=== PATIENT | male | born 1980 | race Caucasian/White ===

== ENCOUNTER 2017-04-12 07:44 | Day surgery (SDC) | payer OTHER ==
[2017-04-09 14:31] VITALS: BMI 31.6
[2017-04-12] MEDS ORDERED: MIDAZOLAM HCL 2 MG/2 ML SINGLE DOSE VIAL ONE (08:49)
[2017-04-12] MEDS ORDERED: ROPIVACAINE HCL 0.5% 30ML VIAL ONE (08:49)
[2017-04-12] MEDS ORDERED: DEXAMETHASONE SOD PHOSPHATE/PF 10 MG/ML SDV ONE (08:49)
[2017-04-12] MEDS ORDERED: VANCOMYCIN 1,000 MG VIAL (RESTRICTED TO ID ONLY) ONE (09:07)
[2017-04-12] MEDS ORDERED: PROPOFOL 20 ML ONE (09:10)
[2017-04-12] MEDS ORDERED: LIDOCAINE HCL 2% 100 MG/5 ML DISP.SYRIN ONE (09:10)
[2017-04-12] MEDS ORDERED: ceFAZolin SODIUM 1 GM VIAL ONE (09:50)
[2017-04-12] MEDS ORDERED: DEXAMETHASONE SOD PHOSPHATE 4 MG/1 ML VIAL ONE (09:52)
[2017-04-12] MEDS ORDERED: ONDANSETRON 4 MG/2 ML VIAL ONE ×2 (09:52→11:25)
--- NOTE | 2017-04-12 11:01 | DS ---
Physical Examination Vital Signs: Vital Signs Temperature 97.7 F 04/12/17 08:03 Pulse Rate 56 L 04/12/17 08:03 Respiratory Rate 16 04/12/17 08:03 Blood Pressure 105/64 04/12/17 08:03 O2 Sat by Pulse Oximetry (%) 96 04/12/17 08:13 Discharge Summary Reason For Visit: ACL MEDIAL/LATERAL TEARS RIGHT KNEE Condition: Good - Instructions Diet, Activity, Other Instructions: Post Operative Instructions: ACL Reconstruction Dr. Roosevelt Tian 1. Pain following an ACL reconstruction is variable and can be significant. Some patients will have more pain than others. You have been provided with a prescription for medication that contains a narcotic. You are not allowed to drive while on this medication. Feel free to take medications such as Ibuprofen or Naprosyn in addition to the pain medicine if you do not have any problems with the NSAID class of medications. 2. You should not remove the bandages for 72 hours unless directed otherwise. You may shower at that point. You are not allowed to bathe or go swimming until the sutures are removed. Put band-aids on the incisions after your shower and do not put any creams or lotions over the incisions. 3. You are allowed to put all your weight on the leg and bend your knee, however , you should use crutches for assistance unless directed otherwise. 4. Getting the knee straight is your most important goal during the first 72 hours following an ACL reconstruction. Try not to lie down with a pillow under your knee. Instead the pillow should be under your ankle, thus allowing you to push your knee straight down into the bed. This is a very important milestone to achieve before your first post-surgery visit with me. 5. Swelling around the knee is normal following an ACL reconstruction. 6. The area around the knee and along the front of your yu will also become swollen and black and blue. 7. Apply ice to the knee for 15 min every hour or so. You may continue this for as many days as you like. 8. Please call the office to schedule a visit to have your sutures removed. 9. If for any reason you believe you may have an infection or are concerned, please feel free to call me. I can be reached through our office number 24 hours a day. 10. Please call our office with any questions; we will review the surgical findings during your post operative visit. Disposition: HOME - Home Medications Comprehensive Discharge Medication List: Ambulatory Orders Acetaminophen [Tylenol -] 500 mg PO Q4H PRN 04/09/17 Hydroxyzine Pamoate [Vistaril -] 50 mg PO HS 04/09/17
--- NOTE | 2017-04-12 11:01 | OP ---
Operative Note - Note: Operative Date: 04/12/17 Pre-Operative Diagnosis: Right knee ACL tear, LMT Operation: RKA, PLM, ACLR Post-Operative Diagnosis: Same as Pre-op Surgeon: Roosevelt Tian Anesthesiologist/GROUND SYSTEMS ENGINEER: Gregor Gaming Anesthesia: General Operative Report Dictated: Yes
[2017-04-12] MEDS ORDERED: ONDANSETRON 4 MG/2 ML VIAL IVPUSH ONE (11:28)
[2017-04-12] MEDS ORDERED: ONDANSETRON 4 MG/2 ML VIAL IVPUSH PRN (11:35)
[2017-04-12] MEDS ORDERED: oxyCODONE HCL 5 MG TABLET PO PRN ×2 (11:35)
[2017-04-12] MEDS ORDERED: PROMETHAZINE HCL 25 MG/1 ML VIAL IVPUSH PRN (11:35)
--- NOTE | 2017-04-12 13:36 | SURG ---
Surgery Parts Counter Representative Note Parts Counter Representative: Erick Alba PA-C Date of Service: 04/12/17 Diagnosis: Right knee ACL tear, lateral meniscal tear Procedure: Right knee arthroscopy, partial lateral meniscectomy, ACL reconstruction I was present for the entirety of the operative procedure. For further detail, please refer to operative report. Visit type - Case Type Case Type: Scheduled Admission - New patient This patient is new to me today: Yes Date on this admission: 04/12/17
[2017-04-12 15:09] VITALS: BP 128/84; PULSE 65; TEMP 97.6
--- NOTE | 2017-04-17 09:37 | PATH ---
Surgical Pathology Report Patient Name: CHRISTIN MEDINA [facility]. Rec. #: [id number] /Age/Gender: 1980 (Age: 37) / M Account: [id number] Location: [facility] AMBULATORY Taken: 04/12/2017 Received: 04/12/2017 Reported: 04/17/2017 Physicians: Roosevelt Tian M.D. Specimen(s) Received SHAVINGS RIGHT KNEE Clinical History Right ACL tear Final Diagnosis KNEE, RIGHT, ARTHROSCOPIC SHAVING: FIBROCARTILAGE WITH MYXOID DEGENERATIVE CHANGES, ALONG WITH PORTIONS OF SYNOVIUM. Electronically Signed Fran Muñoz M.D. Gross Description Received in formalin, labeled "shavings right knee," is a 3.0 x 3.0 x 0.3 cm. aggregate of gutierrez-yellow soft tissue fragments. A media sales representative portion is submitted in one cassette. /04/15/2017 saudi04/15/2017
== END 2017-04-12 14:45 | disposition home or self-care (01) ==
LOC: FASU 07:44
PROVIDERS: ATTEND Orthopaedic Surgery
PROC: 0SBC4ZZ Excision of Right Knee Joint, Percutaneous Endoscopic Approach (ICD-10-PCS; 2017-04-12)
PROC: 0MQN4ZZ Repair Right Knee Bursa and Ligament, Percutaneous Endoscopic Approach (ICD-10-PCS; principal; 2017-04-12 10:05)
DX: S83.511A Sprain of anterior cruciate ligament of right knee, initial encounter (principal); S83.281A Other tear of lateral meniscus, current injury, right knee, initial encounter; X58.XXXA Exposure to other specified factors, initial encounter; Y93.9 Activity, unspecified; Y92.9 Unspecified place or not applicable